=== PATIENT | female | born 1990 | race Caucasian/White ===

== ENCOUNTER 2018-06-02 18:30 | Emergency (ER) | payer BC ==
[2018-06-02] MEDS ORDERED: METH36 PO (18:38)
[2018-06-02] MEDS ORDERED: DIPHTH/TETANUS/ACEL. PERTUSSIS IM ONLY ONE (20:50)
--- NOTE | 2018-06-02 21:09 | ER Report ---
History and Physical Time Seen By MD: 20:15 Hx. of Stated Complaint: CUT LEFT HAND WHILE TRYING TO GET AVOCADO PIT OUT HPI/ROS CHIEF COMPLAINT: laceration HISTORY OF PRESENT ILLNESS: Patient is a 27 year old female presenting to the clinic with complaints of a laceration. Patient was attempting to get the pit out of an avocado when the knife slipped and cut her left hand. Is present between her thumb and index finger. Happened this evening. Patient last tetanus shot was 2011. Patient will get tetanus shot today. REVIEW OF SYSTEMS: Respiratory: No cough, no dyspnea. Cardiovascular: No chest pain, no palpitations. Gastrointestinal: No vomiting, no abdominal pain. Musculoskeletal: Full movement and sensation in left hand. Allergies: Coded Allergies: No Known Drug Allergies (Unverified , 06/02/18) Home Meds Active Scripts Cephalexin 500 Mg Tab (KEFLEX 500 MG TAB) 500 Mg Tablet, 500 MG PO Q6H, #18 TAB Prov:CUCA ALEGRE [employer]IOR [employer]ICY ANALYST 06/02/18 Reported Medications Methylphenidate Hcl (CONCERTA) 36 Mg Tab.er.24, 36 MG PO QAM 06/02/18 Past Medical/Surgical History Patient has a past medical history of ADHD. Patient denies any surgical history. Reviewed Nurses Notes: Yes Constitutional Vital Sign - Last 24 Hours 06/02/18 06/02/18 06/02/18 18:37 19:52 21:14 Temp 98.4 Pulse 74 80 Resp 12 16 B/P (MAP) 112/85 118/89 (99) Pulse Ox 96 97 O2 Delivery Room Air Room Air Physical Exam General Appearance: The patient is alert, has no immediate need for airway protection and no current signs of toxicity. Respiratory: Chest is non tender, lungs are clear to auscultation. Cardiac: Regular rate and rhythm Gastrointestinal: Abdomen is soft and non tender, no masses, bowel sounds normal. Musculoskeletal: Neck: Neck is supple and non tender. Extremities have full range of motion and are non tender. Skin: 1 cm laceration on left hand. Patient has full movement and sensation in all fingers and thumb. [DIFFERENTIAL DIAGNOSIS: After history and physical exam differential diagnosis was considered for laceration and ligment and tendon involvement. Medical Decision Making ED Course/Re-evaluation ED Course Patient was admitted to the room and placed in a bed. History and physical were obtained. Differential diagnoses were considered. Laceration was cleaned. Area numbed with 1 ml of 2% Lidocaine. Laceration was repaired. It was determined the last tetanus shot was in 2011. Patient agreed to a tetanus booster. Instructions were given for post care of the laceration. Patient verbalized understanding. Prophylactic antibiotics were prescribed. Patient discharged to home. Procedure: Laceration repair. Verbal consent was obtained from the patient. The 1 cm laceration on the left palm was anesthetized in the usual fashion. The wound was scrubbed, draped and explored to its base with a gloved finger. There were no deep structures involve d. No tendon injury was identified. The wound was repaired with 5.0 Prolene. The wound repair was simple. The procedure was performed by myself. Decision to Disposition Date: Jun 02, 2018 Decision to Disposition Time: 21:26 Depart Departure Latest Vital Signs Vital Signs Date Time Temp Pulse Resp B/P (MAP) Pulse Ox O2 Delivery O2 Flow Rate FiO2 06/02/18 21:14 80 16 118/89 (99) 97 Room Air 06/02/18 19:52 98.4 Impression: Primary Impression: Laceration Condition: Improved Disposition: HOME OR SELF-CARE New Scripts Cephalexin 500 Mg Tab (KEFLEX 500 MG TAB) 500 Mg Tablet 500 MG PO Q6H, #18 TAB Prov: CUCA ALEGRE 06/02/18 Departure Forms: Medications Reconciliation, Patient Portal Information, ER Transition Record Patient Instructions: Hand Laceration Additional Instructions: Keep wound dry for 48 hours. Follow up with your primary care provider in the next 7-10 days to have sutures removed. Monitor for signs of infection; redness, swelling, heat, discharge, increasing pain or red streaking. Take Tylenol or Ibuprofen as needed for pain. Return to the ER with any concerns. You may change dressing as needed. CUCA ALEGRE Jun 02, 2018 21:09
[2018-06-02] MEDS ORDERED: CEPHALEXIN 500 MG CAP TH 2 CAP/BOTTLE PO ONE (21:10)
[2018-06-02 21:14] VITALS: BP 118/89
[2018-06-02] MEDS ORDERED: CEPH500T7 PO (21:26)
== END 2018-06-02 21:27 | disposition home or self-care (01) ==
LOC: ER 19:17
DX: S61.412A Laceration without foreign body of left hand, initial encounter (principal)
CPT/HCPCS: 90471; 90715; 99283